=== PATIENT | female | born 1995 | race Caucasian/White ===

== ENCOUNTER 2020-09-08 04:35 | Emergency (ER) | payer OTHER ==
[~2020-09-08] VITALS: Ht 152.4 cm; Wt 49.9 kg
[2020-09-08 04:39] VITALS: BP 125/75
--- NOTE | 2020-09-08 04:40 | NUR ---
To ED bed 06
--- NOTE | 2020-09-08 04:46 | NUR ---
ERMD AT BEDSIDE.
--- NOTE | 2020-09-08 04:48 | NUR ---
VERBAL ORDER FOR LIDOCAINE 2% FROM [facility].
[2020-09-08] MEDS ORDERED: LIDOCAINE 2% 1000 MG/50 ML VIAL INJ ONE (04:50)
[2020-09-08] MEDS ORDERED: LIDOCAINE 2% 100 MG/5 ML SYR IVP ONE (04:50)
[2020-09-08] MEDS ORDERED: AMOX500C25 PO (04:56)
[2020-09-08] MEDS ORDERED: CHLOR BC (04:56)
[2020-09-08] MEDS ORDERED: LIDOCAINE MPF 1% 10 MG/ML VIAL INJ ONE (05:00)
--- NOTE | 2020-09-08 05:10 | NUR ---
PATIENT BIB SELF FOR C/O 02/11 TOOTH PAIN X 2 DAYS. PATIENT REPORTS SHE HAS HAD ONGOING TOOTH PAIN X 1 MONTH. REPORTS TAKING IBUPROFEN WITHOUT RELIEF. DENIES N/V/D, FEVER, CHILLS. NO NOTED REDNESS TO GUMS OR SWELLING. MED HX: DENIES ALLERGIES: NKA
[2020-09-08 05:14] VITALS: BP 125/75
--- NOTE | 2020-09-08 05:14 | NUR ---
Patient discharged with v/s stable. Written and verbal after care instructions given and explained. Patient alert, oriented and verbalized understanding of instructions. Ambulatory with steady gait. All questions addressed prior to discharge. ID band removed. Patient advised to follow up with PMD. Rx of AMOXICILLIN AND PERIDEX given. Patient educated on indication of medication including possible reaction and side effects. Opportunity to ask questions provided and answered.
== END 2020-09-08 05:14 | disposition home or self-care (01) ==
LOC: MED 04:35
DX: K08.89 Other specified disorders of teeth and supporting structures (principal); I10 Essential (primary) hypertension
CPT/HCPCS: 64400; 99284; J2001